=== PATIENT | female | born 1970 | race Caucasian/White ===

== ENCOUNTER 2017-06-13 02:38 | Inpatient (IN) ==
[2017-06-12 13:27] LABS: HEMATOCRIT 46.2 % (37.0-47.0); HEMOGLOBIN 15.5 g/dL (12.0-16.0); MCH 31.4 PG (27-31); MCHC 33.5 g/dL (33-37); MCV 93.7 FL (81-99); MPV 10.7 FL (7.4-10.4); RBC 4.93 XMIL (4.2-5.4)
[2017-06-12 13:44] LABS: AGAP 12; BUN 7 mg/dL (8-22); CALCIUM 9.9 mg/dL (8.8-10.2); CHLORIDE 99 mmol/L (98-107); COSMO 281; POTASSIUM 4.4 mmol/L (3.5-5.1); SODIUM 139 mmol/L (136-145); TCO2 28 mmol/L (25-35)
--- NOTE | 2017-06-13 05:11 | EKG Report ---
Test Performed on : 06/12/2017 1:07:57 PM Test Reason : pat Blood Pressure : / mmHG Vent. Rate : 069 BPM Atrial Rate : 069 BPM P-R Int : 170 ms QRS Dur : 088 ms QT Int : 418 ms P-R-T Axes : 018 014 101 degrees QTc Int : 447 ms Normal sinus rhythm. ST \T\ T wave abnormality, consider anterolateral ischemia Abnormal ECG When compared with ECG of 27-DEC-2015 13:57, premature ventricular complexes. are no longer present QT has shortened Confirmed by Telma Quigley MD ([id number]) on 06/18/2017 6:00:04 AM
[2017-06-13] MEDS ORDERED: REGLAN ONE (05:36)
[2017-06-13] MEDS ORDERED: KEFZOL 2 GM/D5W 2 GM/50 ML IVPB ONE (05:36)
[2017-06-13] MEDS ORDERED: LR 1,000 ML ONE (05:36)
[2017-06-13] MEDS ORDERED: PEPCID ONE (05:36)
[2017-06-13] MEDS ORDERED: NITROGLYCERIN 50 MG/D5W 50 MG/250 ML IV.SOLN ONE (06:12)
[2017-06-13] MEDS ORDERED: NS 1,000 ML ONE ×2 (06:20→11:36)
[2017-06-13] MEDS ORDERED: KEFZOL ONE (06:20)
[2017-06-13] MEDS ORDERED: HEPARIN ONE (06:20)
[2017-06-13] MEDS ORDERED: NEO-SYNEPHRINE ONE (06:25)
[2017-06-13] MEDS ORDERED: VERSED ONE (06:27)
[2017-06-13] MEDS ORDERED: DIPRIVAN 1% ONE (06:29)
[2017-06-13] MEDS ORDERED: FENTANYL ONE ×2 (06:30→08:39)
[2017-06-13] MEDS ORDERED: SODIUM CHLORIDE 0.9% 10 ML ONE (06:32)
[2017-06-13] MEDS ORDERED: ATROPINE ONE (06:32)
[2017-06-13] MEDS ORDERED: NORCURON ONE (06:32)
[2017-06-13] MEDS ORDERED: XYLOCAINE-MPF 2% ONE (06:32)
[2017-06-13] MEDS ORDERED: ROBINUL ONE ×2 (06:32→10:03)
[2017-06-13] MEDS ORDERED: QUELICIN (DOSE) ONE (06:36)
[2017-06-13] MEDS ORDERED: HEPARIN (DOSE) ONE (06:37)
[2017-06-13] MEDS ORDERED: EPHEDRINE ONE (07:27)
[2017-06-13] MEDS ORDERED: LOPRESSOR ONE (08:17)
[2017-06-13 08:38] LABS: URINE SOURCE CATH
[2017-06-13 08:41] LABS: BILIRUBIN URINE NEGATIVE (NEGATIVE); BLOOD URINE NEGATIVE (NEGATIVE); CLARITY CLEAR (CLEAR); COLOR YELLOW; GLUCOSE URINE NEGATIVE (NEGATIVE); LEUKOCYTES URINE NEGATIVE (NEGATIVE); NITRITE URINE NEGATIVE (NEGATIVE); PH URINE 5.5; PROTEIN URINE NEGATIVE (NEGATIVE); SP GRAVITY URINE >= 1.030; UROBILINOGEN URINE 0.2 EU/dL (0.2-1.0)
[2017-06-13 09:06] LABS: URINE RBC <10 /HPF (<10); URINE WBC <10 /HPF (<10)
[2017-06-13 09:07] LABS: URINE CAST NONE SEEN /LPF; URINE CRYSTAL NONE SEEN /HPF; URINE EPITHELIAL CELLS <10 /HPF (<10)
[2017-06-13] MEDS ORDERED: LABETALOL ONE (09:31)
[2017-06-13] MEDS ORDERED: OFIRMEV 1000 MG/ISOTONIC SOLN 1,000 MG/100 ML BOTTLE ONE (09:38)
[2017-06-13] MEDS ORDERED: NEOSTIGMINE ONE (10:03)
[2017-06-13] MEDS ORDERED: ZOFRAN ONE (10:40)
[2017-06-13] MEDS ORDERED: DUONEB (A & A) ONE (11:33)
[2017-06-13] MEDS: DILAUDID ONE ×3 (11:52→13:02)
[2017-06-13] MEDS: ZOFRAN ONE ×2 (12:14→13:02)
[2017-06-13] MEDS: DILAUDID IV PRN ×3 (13:07→21:46)
[2017-06-13] MEDS: NS 1,000 ML IV SCH ×2 (13:19→21:46)
[2017-06-13 13:43] LABS: ALLEN TEST YES; BLOOD TYPE ARTERIAL; DRAW SITE L RADIAL; METHB 1.1 % (0.0-1.5); O2(CT) 15.7 mL/dL (15.0-23.0); PCO2(98.6) 49 mmHg (35-45); PO2(98.6) 72 mmHg (60-100); SAMPLE BLOOD; SAO2 95.8 % (95.0-100.0); THB 12.1 g/dL (11.5-17.4); pH(98.6) 7.28 (7.35-7.45)
[2017-06-13 13:46] LABS: MODALITY CANNULA
[2017-06-13] MEDS: DUONEB (A & A) INH SCH ×4 (14:31→22:47)
[2017-06-13] MEDS: KEFZOL 1 GM/D5W 1 GM/50 ML IVPB IV SCH ×3 (14:31→22:01)
--- NOTE | 2017-06-13 14:37 | OPERATIVE NOTE ---
PROCEDURE DATE: 06/13/2017 PROCEDURES: 1. Aortobifemoral bypass. 2. Left femoral popliteal above knee bypass using an 8 mm Distaflo graft. SURGEON: Austen Srivastava MD. GROUP FITNESS MANAGER: Paul Calvo MD who assisted in exposure, anastomosis and wound closure. PREOPERATIVE DIAGNOSES: 1. Bilateral iliac occlusion. 2. Bilateral superficial femoral artery occlusion. 3. Intermittent claudication, worse on the left. POSTOPERATIVE DIAGNOSES: 1. Bilateral iliac occlusion. 2. Bilateral superficial femoral artery occlusion. 3. Intermittent claudication, worse on the left. DESCRIPTION OF PROCEDURE: After satisfactory general endotracheal anesthesia achieved, the abdomen and left leg were prepped and draped in a sterile fashion. We used an [place] drape. Prophylactic Kefzol was given. We made a vertical incision in the left groin, dissected down the common femoral artery, surrounded with an umbilical tape at the inguinal ligament and the branch vessels were surrounded with vessel loops. The small branches surrounded with 2 -0 silks. We did the same thing on the right groin. We then placed antibiotic sponges in both groins. We then made a midline abdominal incision and entered the abdominal cavity. We reflected the small bowel to the right and entered the retroperitoneum and exposed the aorta. We then placed the bowel within a bowel bag and reflected it to the right. We used a Bookwalter retractor and positioned it with our retractors to expose the retroperitoneum satisfactorily. The CHACE was identified. The left renal vein was identified. We made the tunnels in the retroperitoneum along the course of the vessels to both groins, passed umbilical tapes to use as tunnels for the bifurcated graft. We then gave the patient 8000 units of heparin. We chose a 14 x 7 mm Dacron bifurcated graft. I decided to use an end-to-side technique on the aorta to preserve flow to the inferior mesenteric artery and both internal iliac arteries. After we exposed the aorta satisfactorily, I placed a side-biting clamp at the aorta, below the renal vein and occluded it. We then used the angled aortic clamp and clamped it off distally. We then incised the aorta on its anterior aspect just above the inferior mesenteric artery takeoff. The 14 mm graft was then cut in the oblique fashion to match the aortotomy. We then used a 3-0 Prolene stitch beginning at the heel and went around the toe and completed the aortic graft anastomosis. We checked the anastomosis. A couple of extra stitches were placed. We then passed the limbs to the tunnels to the groins on both sides. We placed the appropriate amount of stretch on the limbs and then we turned our attention to the right groin. I took down the Bookwalter retractor and passed and then attended to the right groin first. We clamped off the common femoral to the inguinal ligament, and occluded flow in the branch vessels with the vessel loops and then did an anterior arteriotomy with 11 blade and extended with the Goel scissors. We cut the graft to match the arteriotomy, then used a 5-0 Prolene stitch beginning at the heel and going around the toe to do this anastomosis. Just prior to finishing it, we did pass a 3, 3.5 and 4 dilator down the profunda. We got good back bleeding. We back bled it and fore bled the common femoral, and then flushed the right limb of the graft after clamping off the left limb in the abdominal cavity. After flushing it, we then finished the anastomosis. We unclamped the aorta and flow was established down the right limb. A couple of additional stitches were used to achieve complete hemostasis of the right femoral anastomosis. Gel-Foam was used. We used the antibiotic sponge. I then turned our attention to the left groin. We did exactly the same procedure on the left side and we did use some dilators in the profunda and got good aggressive back bleeding in the profunda and then completed this anastomosis too using a 5-0 Prolene stitch. Prior to completing it, we back bled the profunda, fore bled the common femoral, flushed the graft and then finished the anastomosis and flow was established. All the clamps were removed from the abdominal cavity when this limb was opened. Again, an antibiotic sponge is placed in the left groin. We then proceeded to close the right groin with 2 layers of 2-0 Polysorb. We turned our attention to the abdominal cavity. Closed the retroperitoneum with a 2-0 chromic. We took care to cover the graft. We took care to avoid any exposure of the graft to the bowel. We took the bowel out of the bag, placed into the abdominal cavity and proceeded to close the anterior peritoneum with a 2-0 chromic and then the #2 Prolene in the fascia. We turned our attention once again to the left leg and did a distal medial incision in the thigh and exposed the popliteal and distal superficial femoral, popliteal artery, surrounded the vessel loops. We obtained an 8 x 80 Distaflo ring to graft and used a Dossick tunneler to tunnel the graft into the deep portion of the thigh. We positioned the jones of the Distaflo graft right at the distal artery and then cut the proximal end to match the appropriate length to the left limb of the aortobifemoral graft. We then removed the rings. We clamped off the left femoral artery and clamped with a Satinsky clamp. We made a vertical incision in the graft and then cut the PTFE graft to match the graftotomy. We then used a CV-5 [place] suture to construct this anastomosis between the PTFE graft and the Dacron graft. We tested the anastomosis and it was hemostatic. We did place some Gel-Foam around it. We clamped off the PTFE graft and then turned our attention distally. Medial arteriotomy to match the length of the jones on the Distaflo graft. We then used a CV-6 [place] suture here beginning at the heel and going around the toe. The popliteal artery admitted a 4 dilator easily and there was satisfactory back bleeding. After we neared completion of the anastomosis, we again flushed the PTFE graft from above and had good vigorous flow. We then finished the anastomosis and flow was established. No additional stitch was required of the distal anastomosis. We irrigated both the left groin and the left distal medial thigh wound with antibiotic solution. We then proceeded to close the left groin with 2 layers of 2-0 Polysorb. Two layers of 2-0 Polysorb were used to close the subcutaneous tissue of the distal medial thigh wound. We then closed every incision of the abdominal wound, both groins and the left medial thigh wound with roselyn. Sterile dressings were applied. She tolerated it well. Estimated blood loss was 800 mL. She was sent to the recovery room in satisfactory condition. cc: Austen Srivastava MD [facility]
[2017-06-13] MEDS ORDERED: KEFZOL 1 GM in NS 50 ML IV SCH (15:00)
[2017-06-13] MEDS: LOPRESSOR PO SCH (21:46)
[2017-06-13] MEDS: PERIDEX MT SCH (22:01)
[2017-06-14] MEDS: DILAUDID IV PRN ×6 (00:39→23:32)
[2017-06-14] MEDS: DUONEB (A & A) INH SCH ×6 (03:16→23:05)
[2017-06-14] MEDS: NS 1,000 ML IV SCH ×3 (04:39→18:02)
[2017-06-14] MEDS: ZOFRAN IV PRN (04:52)
[2017-06-14 05:28] LABS: MANUAL DIFF NEEDED? NO
[2017-06-14 05:45] LABS: BASO% 0.1 % (0.0-0.8); EOS# 0.02 X1000 (0.0-0.7); EOS% 0.2 % (0.0-10.0); HEMATOCRIT 32.7 % (37.0-47.0); HEMOGLOBIN 10.7 g/dL (12.0-16.0); IMM GRAN# 0.02 X1000 (0.0-0.04); IMM GRAN% 0.2 % (0.0-0.5); LYMPH# 1.82 X1000 (1.2-3.4); LYMPH% 14.7 % (20.5-51.1); MCH 30.8 PG (27-31); MCHC 32.7 g/dL (33-37); MCV 94.2 FL (81-99); MONO% 4.8 % (1.7-9.3); MPV 10.8 FL (7.4-10.4); PLT 155 X1000 (130-400); RBC 3.47 XMIL (4.2-5.4)
[2017-06-14 05:57] LABS: AGAP 13; BUN 8 mg/dL (8-22); CALCIUM 7.5 mg/dL (8.8-10.2); CHLORIDE 107 mmol/L (98-107); COSMO 289; POTASSIUM 4.1 mmol/L (3.5-5.1); SODIUM 141 mmol/L (136-145); TCO2 21 mmol/L (25-35)
--- NOTE | 2017-06-14 06:13 | Diag Imaging Result Doc PS360 ---
EXAM: CHEST-PORTABLE HISTORY: post op TECHNIQUE: COMPARISON: 12/27/2015 FINDINGS: Poor inspiratory effort. Sternal wires are present. Heart is not enlarged. There is basilar atelectasis versus tiny infiltrates. No pleural effusions identified. There is at least moderate scoliosis. IMPRESSION: Poor inspiratory effort with basilar atelectasis versus tiny infiltrates. Follow-up PA and lateral recommended. Electronically signed by Terell Guerrero 06/14/2017 6:11 AM
[2017-06-14] MEDS: PERIDEX MT SCH ×2 (09:30→20:06)
[2017-06-14] MEDS: LOPRESSOR PO SCH ×2 (09:30→20:07)
[2017-06-15] MEDS: DUONEB (A & A) INH SCH ×6 (03:11→23:22)
[2017-06-15] MEDS: NS 1,000 ML IV SCH ×2 (04:56→14:23)
[2017-06-15 05:17] LABS: BASO% 0.2 % (0.0-0.8); EOS# 0.05 X1000 (0.0-0.7); EOS% 0.5 % (0.0-10.0); HEMATOCRIT 25.8 % (37.0-47.0); HEMOGLOBIN 8.1 g/dL (12.0-16.0); IMM GRAN# 0.03 X1000 (0.0-0.04); IMM GRAN% 0.3 % (0.0-0.5); LYMPH% 9.2 % (20.5-51.1); MANUAL DIFF NEEDED? NO; MCH 30.7 PG (27-31); MCHC 31.4 g/dL (33-37); MCV 97.7 FL (81-99); MONO# 0.69 X1000 (0.11-0.59); MONO% 6.4 % (1.7-9.3); MPV 9.7 FL (7.4-10.4); NEUT% 83.4 % (42.2-75.2); PLT 116 X1000 (130-400); RBC 2.64 XMIL (4.2-5.4)
[2017-06-15 05:29] LABS: AGAP 10; BUN 7 mg/dL (8-22); CALCIUM 8.3 mg/dL (8.8-10.2); CHLORIDE 109 mmol/L (98-107); COSMO 293; POTASSIUM 4.1 mmol/L (3.5-5.1); SODIUM 144 mmol/L (136-145); TCO2 25 mmol/L (25-35)
[2017-06-15] MEDS: DILAUDID IV PRN ×4 (05:34→20:24)
--- NOTE | 2017-06-15 08:31 | Diag Imaging Result Doc PS360 ---
EXAM: CHEST-PORTABLE INDICATION: post op TECHNIQUE: One view COMPARISON: 06/14/2017 FINDINGS: Inspiration is suboptimal. Subsegmental atelectasis and/or infiltrate at the lung bases is similar to the previous study. No new consolidations are appreciated. Cardiac silhouette is stable. IMPRESSION: Essentially stable chest. Electronically signed by Kana Perez 06/15/2017 8:29 AM
[2017-06-15] MEDS: PERIDEX MT SCH ×2 (08:42→20:05)
[2017-06-15] MEDS: LOPRESSOR PO SCH ×2 (08:42→20:05)
--- NOTE | 2017-06-15 12:40 | PROGRESS NOTE ---
DATE: 06/15/2017 SUBJECTIVE: The patient feels sore. She denies nausea or vomiting. She has not passed any gas yet. OBJECTIVE: Vital Signs: She is afebrile. Vital signs are stable. O2 saturation 99%. General: She is awake and alert. No acute distress. Cardiovascular: Regular rate and rhythm. Respiratory: No work of breathing. She is on an oxygen face mask with 50% Venturi mask. Urine output 1550 mL yesterday. Gastrointestinal: Abdomen soft, mildly tender. Nondistended. Her bowel sounds are hypoactive. LABORATORY: White blood cell count 70889, hemoglobin 8, hematocrit 25. Basic metabolic profile reviewed and unremarkable. ASSESSMENT/PLAN: A 46-year-old female postop day 2, aortobifemoral bypass and femoral popliteal bypass. She is doing reasonably well. We are trying to wean her off of the Venturi mask. She is a smoker and has some respiratory insufficiency. Her bowel function is sluggish. At this point, we will start her on sips of clears today and encourage being out of bed and working on pulmonary toilet. cc: MD Austen Eli MD
[2017-06-15] MEDS ORDERED: BLISTEX MEDICATED BERRY LIP BALM TOP ONE (14:03)
[2017-06-15] MEDS: ZOFRAN IV PRN (23:50)
[2017-06-16] MEDS: DUONEB (A & A) INH SCH ×6 (03:23→23:13)
[2017-06-16] MEDS: NS 1,000 ML IV SCH ×2 (04:48→10:34)
[2017-06-16] MEDS: PERIDEX MT SCH ×2 (08:06→20:02)
[2017-06-16] MEDS: LOPRESSOR PO SCH ×2 (08:06→20:02)
--- NOTE | 2017-06-16 10:20 | PROGRESS NOTE ---
DATE: 06/16/2017 SUBJECTIVE: She noted some numbness in her left lower leg and foot overnight. No significant pain there. She is able to move it well. She has no other complaints of weakness in her upper extremity or face. She has not passed any gas yet. She denies nausea or vomiting. She does have some abdominal pain. OBJECTIVE: Vital Signs: She is afebrile. Vital signs are stable. However, she does occasionally drop her oxygen saturations. However, on a 100% nonrebreather, they are maintained above 90% for the most part. Otherwise, her vital signs are stable. She is making good urine output of about 2 L yesterday. General: She is awake and alert. No acute distress. Respiratory: Bilateral equal breath sounds but really fairly poor inspiration. CV: Regular rate and rhythm. GI: Soft, appropriately tender. She does have a few bowel sounds. Her incision is clean, dry, and intact. Extremities: She moves all extremities equally and well. She has a strong palpable pulse in her foot on the left and ankle. There is no discoloration in the foot or toes. Her foot is warm. She has sensation to touch, although it seems different on the left. ASSESSMENT AND PLAN: A 46-year-old female, status post aortobifemoral bypass and femoropopliteal bypass above the knee. Her main problem postoperatively is hypoxia and respiratory insufficiency. We will check another chest x-ray this morning, work on incentive spirometry, and ask the data clerk to see her and assist. With regards to the left lower extremity numbness, we are going to get a CT scan of the head as a precaution. cc: MD Austen Eli MD
--- NOTE | 2017-06-16 11:15 | Diag Imaging Result Doc PS360 ---
EXAM: CHEST-PORTABLE INDICATION: hypoxia TECHNIQUE: One view COMPARISON: 06/15/2017 FINDINGS: Lung volumes are low similar to the previous study. Subsegmental atelectasis and/or infiltrate at the lung bases appears to have worsened somewhat. This is probably due to worsening pulmonary edema. There is suggestion of small bilateral effusions that have probably increased in size during the interval. Cardiac silhouette is stable. Pulmonary venous congestion is noted. IMPRESSION: Worsening infiltrates bilaterally likely representing worsening edema. Electronically signed by Kana Perez 06/16/2017 11:13 AM
[2017-06-16] MEDS: DILAUDID IV PRN ×2 (11:17→20:23)
--- NOTE | 2017-06-16 11:21 | Diag Imaging Result Doc PS360 ---
EXAM: HEAD W/O CONTRAST TECHNIQUE: Dose reduction protocol was used. INDICATION: new left leg numbness COMPARISON: 12/27/2015 FINDINGS: There are chronic lacunar infarcts involving the violeta on the right, the left caudate, left basal ganglion, and probably the right basal ganglion. These can be identified on the previous study. There is no definite acute infarct given the limited sensitivity of CT versus MRI. There is no discrete intracranial mass, mass effect, or intracranial hemorrhage. The surrounding soft tissues and bony structures are essentially unremarkable. IMPRESSION: Stable chronic changes as described but no definite acute pathology given the limitations of CT versus MRI. Electronically signed by Kana Perez 06/16/2017 11:18 AM
[2017-06-16] MEDS: LEVAQUIN 500 MG/D5W 500 MG/100 ML IVPB IV SCH (12:52)
[2017-06-16] MEDS: MAXIPIME 1 GM/NS 1 GM/50 ML IVPB IV SCH (12:59)
[2017-06-16] MEDS ORDERED: LASIX IV ONE (13:00)
--- NOTE | 2017-06-16 15:56 | CONSULTATION ---
DATE OF CONSULTATION: 06/16/2017 REASON FOR STUDY: Dr. Austen Srivastava Thank you very much for asking me to see this very unfortunate 46-year-old female, white. IMPRESSION: 1. Status postop day #4 for aortofemoral bypass surgery secondary to vascular occlusion. 2. Chronic obstructive pulmonary disease. 3. Postoperative respiratory failure. 4. History of hypertension. RECOMMENDATIONS: I will gently diurese her. Give her broad-spectrum antibiotics with meropenem and Levaquin, inhaled beta agonists, sequential compression boots for DVT prophylaxis, and wean her oxygen. Follow closely along with you. HISTORY: The history is somewhat incomplete on this 46-year-old female, white. She has a known history of coronary artery disease and underwent bypass surgery on the . She was returned to the ICU where she has developed some shortness of breath, cough and some hypoxemia, and subsequently I am consulted to assist in her care. She is a smoker of approximately 60 pack-year history. Continued to smoke up until her admission. REVIEW OF SYSTEMS: Except for the features mentioned above are negative for weight loss, night sweats, weakness or anorexia. No ENT symptoms of odynophagia, dysphagia, epistaxis or painful swallowing. No eye symptoms of blindness, blurring or diplopia. No other cardiac or pulmonary symptoms other than mentioned. No nausea, vomiting, constipation, diarrhea. No hematuria, polyuria, nocturia, dysuria. No joint or muscle pain, stiffness, swelling. No skin rash, itching, bruises. No seizures, loss of consciousness or paralysis. Except for the features mentioned above, all other symptoms on the review of system are negative. FAMILY HISTORY: Noncontributory. PAST MEDICAL HISTORY: Positive for hypertension, vascular disease, status post bypass surgery and COPD. SOCIALLY: She is a medically disabled smoker. PHYSICAL EXAMINATION: Vital signs: Blood pressure of 125/73, pulse 93, respirations 24, temperature 97.3 degrees. HEENT: Reveals no thyromegaly or adenopathy. Pupils are equal and reactive. Extraocular muscles are intact. Neck: Supple. No bruits. No thyromegaly. No JVD. Chest: Reveals bilateral equal breath sounds with some prolongation expiratory phase. Forced expiratory wheezes. Cardiac: Reveals a regular rhythm without an appreciable murmur. Abdomen: Soft postoperative, nontender. There is a midline incision. Skin: Warm and dry. Neurological: Grossly nonfocal. Awake and moves all 4. LABORATORY/IMAGING: Sodium 144, potassium 4.1, chloride 109, CO2 25, BUN 7. Creatinine 0.6, glucose 215. White count 10,800, hemoglobin 8.1, hematocrit 25.8, platelets 116,000. Chest radiograph shows modest cardiomegaly. Right-sided pleural effusion. Median sternotomy. cc: Austen Srivastava MD
[2017-06-17] MEDS: DILAUDID IV PRN ×4 (01:30→22:26)
[2017-06-17] MEDS: NS 1,000 ML IV SCH ×2 (01:31→08:47)
[2017-06-17] MEDS: MAXIPIME 1 GM/NS 1 GM/50 ML IVPB IV SCH ×2 (01:32→14:47)
[2017-06-17] MEDS: DUONEB (A & A) INH SCH ×6 (03:22→23:30)
[2017-06-17 04:43] LABS: ALLEN TEST YES; BE 4.3 mmoll (-3.0-3.0); BLOOD TYPE ARTERIAL; DRAW SITE R RADIAL; METHB 0.8 % (0.0-1.5); O2(CT) 9.5 mL/dL (15.0-23.0); PCO2(98.6) 45 mmHg (35-45); PO2(98.6) 54 mmHg (60-100); SAMPLE BLOOD; SAO2 92.3 % (95.0-100.0); THB 7.5 g/dL (11.5-17.4); pH(98.6) 7.42 (7.35-7.45)
[2017-06-17 04:45] LABS: MODALITY NRB
[2017-06-17 05:02] LABS: AGAP 14; BASO% 0.2 % (0.0-0.8); BUN 8 mg/dL (8-22); CALCIUM 8.4 mg/dL (8.8-10.2); CHLORIDE 102 mmol/L (98-107); COSMO 285; EOS# 0.05 X1000 (0.0-0.7); EOS% 0.9 % (0.0-10.0); HEMATOCRIT 23.1 % (37.0-47.0); HEMOGLOBIN 7.3 g/dL (12.0-16.0); LYMPH# 0.82 X1000 (1.2-3.4); MANUAL DIFF NEEDED? YES; MCH 31.5 PG (27-31); MCHC 31.6 g/dL (33-37); MCV 99.6 FL (81-99); MONO# 0.49 X1000 (0.11-0.59); MONO% 8.4 % (1.7-9.3); MPV 10.5 FL (7.4-10.4); NEUT% 76.5 % (42.2-75.2); PLT 129 X1000 (130-400); POTASSIUM 3.5 mmol/L (3.5-5.1); RBC 2.32 XMIL (4.2-5.4); SODIUM 141 mmol/L (136-145); TCO2 25 mmol/L (25-35)
[2017-06-17 05:49] LABS: BANDS 10 % (0-1); HYPOCHROM 1+; LYMPHS 20 % (21-51)
--- NOTE | 2017-06-17 05:53 | Diag Imaging Result Doc PS360 ---
EXAM: CHEST-1 VIEW HISTORY: copd TECHNIQUE: Portable COMPARISON: 06/16/2017 FINDINGS: There are bilateral infiltrates and atelectasis. Sternal wires are present. Heart is mildly enlarged. Liver small pleural effusions. Patient has at least moderate scoliosis. IMPRESSION: No interval improvement. Infiltrates may be slightly worse. Electronically signed by Terell Guerrero 06/17/2017 5:51 AM
[2017-06-17] MEDS ORDERED: LASIX IV ONE ×2 (06:14→08:11)
[2017-06-17] MEDS: LOPRESSOR PO SCH ×2 (08:47→20:09)
[2017-06-17] MEDS: PERIDEX MT SCH ×2 (08:47→20:35)
[2017-06-17] MEDS: LEVAQUIN 500 MG/D5W 500 MG/100 ML IVPB IV SCH (12:41)
[2017-06-17] MEDS: ZOFRAN IV PRN (19:32)
[2017-06-18] MEDS: MAXIPIME 1 GM/NS 1 GM/50 ML IVPB IV SCH ×2 (02:00→13:18)
[2017-06-18] MEDS: DILAUDID IV PRN ×6 (03:15→23:07)
[2017-06-18 04:34] LABS: ALLEN TEST YES; BE 9.2 mmoll (-3.0-3.0); BLOOD TYPE ARTERIAL; DRAW SITE R RADIAL; PCO2(98.6) 50 mmHg (35-45); PO2(98.6) 72 mmHg (60-100); SAMPLE BLOOD; THB < 3.0 g/dL (11.5-17.4); pH(98.6) 7.45 (7.35-7.45)
[2017-06-18 04:35] LABS: MODALITY BI PAP
[2017-06-18 04:43] LABS: MANUAL DIFF NEEDED? NO
[2017-06-18 05:12] LABS: AGAP 12; BUN 9 mg/dL (8-22); CALCIUM 8.6 mg/dL (8.8-10.2); CHLORIDE 96 mmol/L (98-107); COSMO 277; SODIUM 138 mmol/L (136-145); TCO2 30 mmol/L (25-35)
[2017-06-18 05:14] LABS: BASO% 0.1 % (0.0-0.8); EOS# 0.07 X1000 (0.0-0.7); HEMATOCRIT 22.9 % (37.0-47.0); HEMOGLOBIN 7.3 g/dL (12.0-16.0); IMM GRAN# 0.05 X1000 (0.0-0.04); IMM GRAN% 0.7 % (0.0-0.5); LYMPH# 1.21 X1000 (1.2-3.4); LYMPH% 17.6 % (20.5-51.1); MCH 30.5 PG (27-31); MCHC 31.9 g/dL (33-37); MCV 95.8 FL (81-99); MONO# 0.53 X1000 (0.11-0.59); MONO% 7.7 % (1.7-9.3); MPV 10.8 FL (7.4-10.4); NEUT% 72.9 % (42.2-75.2); PLT 157 X1000 (130-400); RBC 2.39 XMIL (4.2-5.4)
[2017-06-18] MEDS ORDERED: LASIX IV ONE ×2 (06:45→16:00)
[2017-06-18] MEDS: POTASSIUM CHLORIDE 20 MEQ/SWI 20 MEQ/100 ML IVPB IV SCH ×4 (07:03→17:37)
--- NOTE | 2017-06-18 07:36 | Diag Imaging Result Doc PS360 ---
CHEST-PORTABLE - 06/18/2017 INDICATION: post op TECHNIQUE: COMPARISON: 06/17/2017 FINDINGS: Stable cardiomegaly and hazy interstitial infiltrates diffusely and bilaterally compatible with pulmonary edema. Stable small to moderate pleural effusions. IMPRESSION: No change from prior. Electronically signed by Renaldo Rivas 06/18/2017 7:34 AM
[2017-06-18] MEDS: DUONEB (A & A) INH SCH ×6 (07:49→23:41)
[2017-06-18] MEDS: PERIDEX MT SCH ×2 (08:01→20:06)
[2017-06-18] MEDS: NS 1,000 ML IV SCH (08:01)
[2017-06-18] MEDS: LOPRESSOR PO SCH ×2 (08:01→20:06)
[2017-06-18] MEDS: LEVAQUIN 500 MG/D5W 500 MG/100 ML IVPB IV SCH (12:23)
[2017-06-19] MEDS: MAXIPIME 1 GM/NS 1 GM/50 ML IVPB IV SCH ×2 (01:51→13:19)
[2017-06-19] MEDS: DUONEB (A & A) INH SCH ×6 (03:15→22:47)
[2017-06-19] MEDS: DILAUDID IV PRN ×3 (03:34→20:13)
[2017-06-19 04:23] LABS: ALLEN TEST YES; BE 12.7 mmoll (-3.0-3.0); BLOOD TYPE ARTERIAL; DRAW SITE R RADIAL; METHB 0.8 % (0.0-1.5); O2(CT) 11.5 mL/dL (15.0-23.0); PO2(98.6) 128 mmHg (60-100); SAMPLE BLOOD; SAO2 98.9 % (95.0-100.0); THB 8.3 g/dL (11.5-17.4); pH(98.6) 7.47 (7.35-7.45)
[2017-06-19 04:24] LABS: MODALITY NRB; PCO2(98.6) 52 mmHg (35-45)
[2017-06-19 05:33] LABS: MANUAL DIFF NEEDED? NO
[2017-06-19 05:49] LABS: BASO% 0.3 % (0.0-0.8); EOS# 0.07 X1000 (0.0-0.7); EOS% 1.1 % (0.0-10.0); HEMOGLOBIN 7.2 g/dL (12.0-16.0); IMM GRAN# 0.03 X1000 (0.0-0.04); IMM GRAN% 0.5 % (0.0-0.5); LYMPH# 1.17 X1000 (1.2-3.4); LYMPH% 17.7 % (20.5-51.1); MCH 29.8 PG (27-31); MCHC 31.3 g/dL (33-37); MONO# 0.54 X1000 (0.11-0.59); MONO% 8.2 % (1.7-9.3); MPV 10.9 FL (7.4-10.4); NEUT% 72.2 % (42.2-75.2); PLT 174 X1000 (130-400); RBC 2.42 XMIL (4.2-5.4)
[2017-06-19 06:13] LABS: AGAP 10; BUN 7 mg/dL (8-22); CALCIUM 8.9 mg/dL (8.8-10.2); CHLORIDE 94 mmol/L (98-107); COSMO 277; POTASSIUM 3.1 mmol/L (3.5-5.1); SODIUM 137 mmol/L (136-145); TCO2 33 mmol/L (25-35)
--- NOTE | 2017-06-19 07:18 | Diag Imaging Result Doc PS360 ---
EXAM: CHEST-PORTABLE HISTORY: post op resp failure TECHNIQUE: Portable COMPARISON: 06/18/2017 FINDINGS: Sternal wires are present. Heart remains mildly prominent. There are small bilateral pleural effusions. Mild increased interstitial markings persist although they are less pronounced than on the prior exam. There is prominent scoliosis. IMPRESSION: Interval improvement. Electronically signed by Terell Guerrero 06/19/2017 7:16 AM
[2017-06-19] MEDS ORDERED: POTASSIUM CHLORIDE 20% LIQUID PO ONE (07:20)
[2017-06-19] MEDS: PERIDEX MT SCH ×2 (09:22→20:05)
[2017-06-19] MEDS: LOPRESSOR PO SCH ×2 (09:22→20:05)
[2017-06-19] MEDS: LEVAQUIN 500 MG/D5W 500 MG/100 ML IVPB IV SCH (13:18)
[2017-06-19] MEDS: NS 1,000 ML IV SCH (14:50)
[2017-06-19] MEDS: PLAVIX PO SCH (18:59)
[2017-06-19] MEDS: AMARYL PO SCH (18:59)
[2017-06-19] MEDS: ASPIRIN PO SCH (20:05)
[2017-06-19] MEDS: LIPITOR PO SCH (20:05)
[2017-06-20] MEDS: MAXIPIME 1 GM/NS 1 GM/50 ML IVPB IV SCH ×2 (02:11→14:50)
[2017-06-20] MEDS: DUONEB (A & A) INH SCH ×6 (03:40→23:12)
[2017-06-20 06:28] LABS: MANUAL DIFF NEEDED? NO
[2017-06-20 06:54] LABS: BASO% 0.3 % (0.0-0.8); EOS# 0.06 X1000 (0.0-0.7); EOS% 0.8 % (0.0-10.0); HEMATOCRIT 23.8 % (37.0-47.0); HEMOGLOBIN 7.6 g/dL (12.0-16.0); IMM GRAN# 0.04 X1000 (0.0-0.04); IMM GRAN% 0.5 % (0.0-0.5); LYMPH# 1.08 X1000 (1.2-3.4); LYMPH% 14.7 % (20.5-51.1); MCH 30.5 PG (27-31); MCHC 31.9 g/dL (33-37); MCV 95.6 FL (81-99); MONO# 0.52 X1000 (0.11-0.59); MONO% 7.1 % (1.7-9.3); NEUT% 76.6 % (42.2-75.2); PLT 202 X1000 (130-400); RBC 2.49 XMIL (4.2-5.4)
[2017-06-20 07:07] LABS: AGAP 12; BUN 8 mg/dL (8-22); CALCIUM 9.1 mg/dL (8.8-10.2); CHLORIDE 94 mmol/L (98-107); COSMO 277; POTASSIUM 3.4 mmol/L (3.5-5.1); SODIUM 138 mmol/L (136-145); TCO2 32 mmol/L (25-35)
[2017-06-20] MEDS: PLAVIX PO SCH (08:38)
[2017-06-20] MEDS: AMARYL PO SCH (08:38)
[2017-06-20] MEDS: NS 1,000 ML IV SCH (08:39)
[2017-06-20] MEDS: PERIDEX MT SCH ×2 (08:39→21:07)
[2017-06-20] MEDS: LOPRESSOR PO SCH ×2 (08:39→21:07)
[2017-06-20] MEDS: DILAUDID IV PRN (09:07)
[2017-06-20] MEDS: ZOFRAN IV PRN (09:07)
[2017-06-20] MEDS ORDERED: DULCOLAX PR ONE (11:45)
[2017-06-20] MEDS: LEVAQUIN 500 MG/D5W 500 MG/100 ML IVPB IV SCH (12:09)
[2017-06-20] MEDS: NORCO-10 PO PRN ×2 (15:25→21:05)
[2017-06-20] MEDS: CHANTIX PO SCH (21:06)
[2017-06-20] MEDS: ASPIRIN PO SCH (21:06)
[2017-06-20] MEDS: LIPITOR PO SCH (21:07)
[2017-06-21] MEDS: MAXIPIME 1 GM/NS 1 GM/50 ML IVPB IV SCH ×2 (02:12→16:08)
[2017-06-21] MEDS: DUONEB (A & A) INH SCH ×6 (03:50→22:49)
[2017-06-21 06:03] LABS: MANUAL DIFF NEEDED? NO
[2017-06-21 06:09] LABS: BASO% 0.2 % (0.0-0.8); EOS% 1.2 % (0.0-10.0); HEMATOCRIT 25.8 % (37.0-47.0); IMM GRAN# 0.07 X1000 (0.0-0.04); IMM GRAN% 0.8 % (0.0-0.5); LYMPH# 1.41 X1000 (1.2-3.4); LYMPH% 16.6 % (20.5-51.1); MCH 29.9 PG (27-31); MCV 96.3 FL (81-99); MONO# 0.48 X1000 (0.11-0.59); MONO% 5.7 % (1.7-9.3); MPV 10.7 FL (7.4-10.4); NEUT% 75.5 % (42.2-75.2); PLT 251 X1000 (130-400); RBC 2.68 XMIL (4.2-5.4)
[2017-06-21 06:19] LABS: AGAP 10; BUN 6 mg/dL (8-22); CALCIUM 9.9 mg/dL (8.8-10.2); CHLORIDE 96 mmol/L (98-107); COSMO 279; POTASSIUM 3.1 mmol/L (3.5-5.1); SODIUM 139 mmol/L (136-145); TCO2 33 mmol/L (25-35)
[2017-06-21] MEDS: AMARYL PO SCH (08:45)
[2017-06-21] MEDS: NORCO-10 PO PRN ×3 (09:30→18:53)
[2017-06-21] MEDS: PLAVIX PO SCH (09:45)
[2017-06-21] MEDS: LOPRESSOR PO SCH ×2 (09:50→21:10)
[2017-06-21] MEDS: PERIDEX MT SCH ×2 (09:50→21:10)
[2017-06-21] MEDS: CHANTIX PO SCH ×2 (09:50→21:10)
[2017-06-21] MEDS: LEVAQUIN 500 MG/D5W 500 MG/100 ML IVPB IV SCH (12:10)
[2017-06-21] MEDS ORDERED: LASIX IV ONE (12:23)
[2017-06-21] MEDS: KLOR-CON PO SCH ×3 (14:20→17:52)
[2017-06-21] MEDS: NS 1,000 ML IV SCH (18:54)
[2017-06-21] MEDS: ASPIRIN PO SCH (21:10)
[2017-06-21] MEDS: LIPITOR PO SCH (21:10)
[2017-06-22] MEDS: MAXIPIME 1 GM/NS 1 GM/50 ML IVPB IV SCH ×2 (02:32→14:00)
[2017-06-22] MEDS: DUONEB (A & A) INH SCH ×6 (03:40→22:50)
[2017-06-22] MEDS ORDERED: PNEUMOVAX 23 IM ONE (03:45)
[2017-06-22 05:40] LABS: AGAP 11; ALBUMIN 2.6 g/dL (3.5-5.0); ALKALINE PHOSPHATASE 70 U/L (32-104); BUN 6 mg/dL (8-22); CHLORIDE 96 mmol/L (98-107); COSMO 280; GOT 10 U/L (10-30); GPT 10 U/L (10-36); MAGNESIUM 1.5 mg/dL (1.5-2.7); POTASSIUM 3.9 mmol/L (3.5-5.1); SODIUM 139 mmol/L (136-145); TCO2 32 mmol/L (25-35); TOTAL BILIRUBIN 0.67 mg/dL (0.20-1.00); TOTAL PROTEIN 6.1 g/dL (6.3-8.3)
[2017-06-22] MEDS: PLAVIX PO SCH (08:27)
[2017-06-22] MEDS: AMARYL PO SCH (08:28)
[2017-06-22] MEDS: LOPRESSOR PO SCH ×2 (08:28→21:07)
[2017-06-22] MEDS: CHANTIX PO SCH ×2 (08:28→21:08)
[2017-06-22] MEDS: PERIDEX MT SCH ×2 (08:30→21:07)
[2017-06-22] MEDS: NORCO-10 PO PRN ×2 (08:33→17:59)
--- NOTE | 2017-06-22 11:07 | Diag Imaging Result Doc PS360 ---
EXAM: CHEST-2 VIEWS - 06/22/2017 HISTORY: abnormal exam TECHNIQUE: Chest two views COMPARISON: 06/19/2017 FINDINGS: The PA view is rotated towards the left. Heart size is normal. There are sternal wires from previous surgery again seen. There is been interval decrease in basilar opacities. There is mild subsegmental atelectasis at the right base. There is no dense consolidation, gross vascular congestion, pleural effusion, or pneumothorax identified. IMPRESSION: Interval decrease in basilar opacities. Mild atelectasis at right base. No dense consolidation. Electronically signed by Ajit Rodriguez 06/22/2017 11:05 AM
[2017-06-22] MEDS: NS 1,000 ML IV SCH (12:09)
[2017-06-22] MEDS: LEVAQUIN 500 MG/D5W 500 MG/100 ML IVPB IV SCH (12:10)
[2017-06-22] MEDS: ASPIRIN PO SCH (21:08)
[2017-06-22] MEDS: LIPITOR PO SCH (21:08)
[2017-06-23] MEDS: MAXIPIME 1 GM/NS 1 GM/50 ML IVPB IV SCH (01:20)
[2017-06-23] MEDS: NORCO-10 PO PRN ×2 (02:26→10:12)
[2017-06-23] MEDS: DUONEB (A & A) INH SCH ×2 (04:02→08:09)
[2017-06-23 08:17] VITALS: BP 129/66
[2017-06-23] MEDS: PERIDEX MT SCH (08:45)
[2017-06-23] MEDS: PLAVIX PO SCH (08:46)
[2017-06-23] MEDS: LOPRESSOR PO SCH (08:46)
[2017-06-23] MEDS: AMARYL PO SCH (08:46)
[2017-06-23] MEDS: CHANTIX PO SCH (08:46)
--- NOTE | 2017-06-25 10:08 | DISCHARGE SUMMARY ---
ADMISSION DATE: 06/13/2017 DISCHARGE DATE: 06/23/2017 PRIMARY DISCHARGE DIAGNOSES: 1. Bilateral iliac artery occlusion with claudication. 2. History of cerebral vascular accident. 3. A history of alcohol abuse. 4. Coronary artery disease, post coronary bypass. 5. Gastroesophageal reflux. 6. Diabetes mellitus. 7. Tobacco dependence. PRIMARY PROCEDURE: An aortobifemoral bypass and a left femoral popliteal bypass. REASON FOR ADMISSION AND HOSPITAL COURSE: This is a 46-year-old with significant peripheral vascular disease. She was admitted on the , and underwent aortobifemoral bypass with a left femoral popliteal bypass. Postoperatively, she developed some respiratory failure and Dr. Means was consulted. She was placed on increased FiO2 and even BiPAP. She was diuresed and of course placed on bronchodilator therapy. We were able to start her on liquids on the 5th postoperative day. We are able to advance her diet subsequently, and transferred her out of the unit on the 6th postoperative day. After satisfactory diuresis, her oxygen requirements fail. We switched her from IV pain medicine to p.o. pain medicine on the 7th postoperative day. By 06/23/2017, her oxygen saturation was adequate on 4-5 L of nasal oxygen. She was ambulatory and it was felt she could be discharged home. Her wounds were fine. She did have a palpable foot pulse on the left leg and it was felt she could be discharged home. She will return to the office in a week for followup. She was set up to have nasal oxygen at home. She was given [place] 10 for pain. She will resume her usual home medicines including aspirin, Plavix, Lipitor, Lopressor, Centrum, Chantix, vitamin B12, and glimepiride. cc: Austen Srivastava MD
== END 2017-06-23 10:43 | disposition home or self-care (01) ==
LOC: SURHOLD 02:38 → ICU 12:44 → 4N 06-19 17:58
PROVIDERS: ADMIT Surgery; ATTEND Surgery

== ENCOUNTER 2019-04-17 09:03 | Day surgery (SDC) ==
[2019-04-15 15:35] LABS: HEMATOCRIT 45.2 % (37.0-47.0); HEMOGLOBIN 14.7 g/dL (12.0-16.0); MCH 29.3 PG (27-31); MCHC 32.5 g/dL (33-37); MCV 90.2 FL (81-99); MPV 10.4 FL (7.4-10.4); RBC 5.01 XMIL (4.2-5.4); RDW 14.2 % (11.5-14.5); WBC 8.87 X1000 (4.8-10.8)
[2019-04-15 15:57] LABS: AGAP 12; BUN 10 mg/dL (8-22); CALCIUM 9.8 mg/dL (8.8-10.2); CHLORIDE 101 mmol/L (98-107); COSMO 278; CREATININE 0.6 mg/dL (0.5-0.9); ESTIMATED GFR > 60; GLUCOSE 195 mg/dL (70-104); POTASSIUM 4.5 mmol/L (3.5-5.1); SODIUM 137 mmol/L (136-145); TCO2 24 mmol/L (25-35)
--- NOTE | 2019-04-15 15:57 | EKG Report ---
Test Performed on : 04/15/2019 2:53:30 PM Test Reason : PAT Blood Pressure : / mmHG Vent. Rate : 066 BPM Atrial Rate : 066 BPM P-R Int : 166 ms QRS Dur : 088 ms QT Int : 442 ms P-R-T Axes : 041 073 093 degrees QTc Int : 463 ms Normal sinus rhythm. Nonspecific ST and T wave abnormality Abnormal ECG When compared with ECG of 12-JUN-2017 13:07, Questionable change in QRS axis Confirmed by Darwin MELENDEZ, Rajesh Cuevas ([id number]) on 04/16/2019 6:38:43 PM
[~2019-04-17 09:03] MED LIST: DIPRIVAN 1% ONE; NORCURON ONE; QUELICIN (DOSE) ONE; SODIUM CHLORIDE 0.9% 10 ML ONE; XYLOCAINE-MPF 2% ONE
[2019-04-17] MEDS ORDERED: PEPCID ONE (09:37)
[2019-04-17] MEDS ORDERED: KEFZOL 1 GM/D5W 1 GM/50 ML IVPB ONE (09:37)
[2019-04-17] MEDS ORDERED: REGLAN ONE (09:37)
[2019-04-17] MEDS ORDERED: LR 1,000 ML ONE (09:37)
[2019-04-17] MEDS ORDERED: PAPAVERINE ONE (12:45)
[2019-04-17] MEDS ORDERED: NS 3,000 ML ONE (12:45)
[2019-04-17] MEDS ORDERED: HEPARIN ONE ×3 (12:46→12:49)
[2019-04-17] MEDS ORDERED: HEPARIN (DOSE) ONE (13:22)
[2019-04-17] MEDS ORDERED: FENTANYL ONE (13:34)
[2019-04-17] MEDS ORDERED: ROBINUL ONE ×2 (13:39→13:48)
[2019-04-17] MEDS ORDERED: KEFZOL ONE (13:47)
[2019-04-17] MEDS ORDERED: NS 1,000 ML ONE (14:17)
[2019-04-17] MEDS: DILAUDID ONE ×2 (14:28→14:31)
[2019-04-17 14:56] LABS: URINE SOURCE CATH
[2019-04-17 15:00] LABS: BILIRUBIN URINE NEGATIVE (NEGATIVE); BLOOD URINE NEGATIVE (NEGATIVE); COLOR YELLOW; GLUCOSE URINE 200 mg/dL (NEGATIVE); KETONE URINE NEGATIVE (NEGATIVE); LEUKOCYTES URINE NEGATIVE (NEGATIVE); NITRITE URINE NEGATIVE (NEGATIVE); PH URINE 6.5; PROTEIN URINE TRACE mg/dL (NEGATIVE); SP GRAVITY URINE 1.022; TURBIDITY URINE CLEAR (CLEAR); UROBILINOGEN URINE 2 mg/dL (NORMAL)
[2019-04-17 15:01] LABS: UR EPITHELIAL CELLS <10 /HPF (<10); URINE BACTERIA NEGATIVE /HPF; URINE RBC <10 /HPF (<10); URINE WBC <10 /HPF (<10)
[2019-04-17] MEDS ORDERED: ZOFRAN IV PRN (15:48)
[2019-04-17] MEDS ORDERED: DILAUDID IV PRN (15:48)
[2019-04-17] MEDS: NORCO-10 PO PRN ×2 (18:37→21:39)
[2019-04-17] MEDS: NS 1,000 ML IV SCH (18:38)
--- NOTE | 2019-04-17 20:09 | OPERATIVE NOTE ---
PROCEDURE DATE: 04/17/2019 PROCEDURE PERFORMED: 1. Open thrombectomy left limb aortobifemoral bypass. 2. Open thrombectomy left femoral-popliteal bypass. SURGEON: Austen Srivastava MD. SENIOR ENGINEERING SPECIALIST: ISAÍAS Del Angel. PREOPERATIVE DIAGNOSIS: 1. Thrombosis left limb aortobifemoral graft. 2. Thrombosis left femoral popliteal bypass. POSTOPERATIVE DIAGNOSIS: 1. Thrombosis left limb aortobifemoral graft. 2. Thrombosis left femoral popliteal bypass. DESCRIPTION OF PROCEDURE: The abdomen, right groin, left groin, left leg were prepped and draped in sterile fashion. The foot was excluded. Prophylactic Kefzol was given. We made a vertical incision in the left groin dissected down to the grafts. We identified the left limb of the aortobifemoral. We identified the femoral-popliteal graft as well. After dissecting on both sides of it such that we could clamp the graft we gave the patient 9000 units of heparin systemically. After it circulated for more than 3 minutes we then made a transverse graftotomy. We passed a 4 [place] distally and fortunately it went off easily through the distal anastomosis all the way to the ankle. We retrieved thrombus and clot out of the distal graft until we got good back bleeding so this took multiple passes and we did this until we got good arterial backbleeding and got no further thrombus from the distal femoral-popliteal graft. We then clamped it off. We then passed a 5 Wilder proximally and fortunately it went through the proximal anastomosis as well into the [place] aorta and we evacuated the thrombus from the aortobifemoral graft until we got vigorous antegrade arterial flow and no further thrombus. We clamped the graft off proximally. We then closed the transverse graftotomy with a 5-0 CV 5 [place] suture and both clamps were opened. Hemostasis was satisfactory at the graftotomy and flow was present. She tolerated procedure satisfactory. We irrigated out the wound copiously with Kefzol-impregnated saline then closed the subcutaneous tissue in 2 layers with 2-0 Polysorb running. The skin was closed with roselyn. Sterile dressing was applied. She tolerated it well. Was sent to the recovery room in satisfactory condition. Estimated blood loss was about 50 mL. cc: Austen Srivastava MD
[2019-04-17] MEDS ORDERED: ASPIRIN PO SCH (21:00)
[2019-04-17] MEDS ORDERED: LIPITOR PO SCH (21:00)
[2019-04-17] MEDS: PERIDEX MT SCH (22:05)
[2019-04-17] MEDS: VANCOMYCIN 1 GM/NS 1 GM/250 ML IVPB IV SCH (22:05)
[2019-04-17] MEDS: LOPRESSOR PO SCH (22:06)
[2019-04-18] MEDS: NORCO-10 PO PRN ×3 (07:37→16:35)
[2019-04-18] MEDS: VANCOMYCIN 1 GM/NS 1 GM/250 ML IVPB IV SCH (07:37)
[2019-04-18] MEDS: NS 1,000 ML IV SCH (07:38)
[2019-04-18] MEDS ORDERED: PRILOSEC PO SCH (09:00)
[2019-04-18] MEDS ORDERED: AMARYL PO SCH (09:00)
[2019-04-18] MEDS: LOPRESSOR PO SCH (09:21)
[2019-04-18] MEDS: PERIDEX MT SCH (09:21)
[2019-04-18] MEDS ORDERED: SALINE LOCK IV FLUID XX ONE (13:01)
--- NOTE | 2019-04-18 14:47 | GENERAL SURGERY PROGRESS NOTE ---
DATE: 04/18/2019 OBJECTIVE: She is afebrile, heart rate 86, blood pressure 115/63. She has a little bit of oozing from her wound. Her leg feels warm down to the ankle. The foot is cool. She has not been up much. ASSESSMENT AND PLAN: We will therefore remove her Rueda, make her IV saline lock, and have her walk around to see how she does before deciding on discharge. cc: Austen Srivastava MD
[2019-04-18 15:34] VITALS: BP 136/58
[2019-04-18] MEDS ORDERED: ELIQUIS PO SCH (21:00)
--- NOTE | 2019-04-18 22:21 | GENERAL SURGERY PROGRESS NOTE ---
DATE: 04/18/2019 Ms. Evans has been up walking. I do hear Doppler flow of her graft in her popliteal. I will put her on Eliquis. She wants to go home. She will return to see me in 9 days for staple removal. Wound care was discussed. She is instructed not to smoke. cc: Austen Srivastava MD
== END 2019-04-18 16:44 | disposition home or self-care (01) ==
LOC: OR 09:03 → INTOOBSV 15:43 → 4N 15:43 → OR 04-18 16:44
PROVIDERS: ATTEND Surgery
CPT/HCPCS: 80048; 81001; 82948; 85027; 88304; 93005; 93010; 94640; 94760; 94799; A9270; J0330; J0690; J1170; J1644; J2440; J3010; J3370; J7030; J7120; Q9967; XXXXX

== ENCOUNTER 2019-08-27 03:22 | Inpatient (IN) ==
--- NOTE | 2019-08-24 14:17 | EKG Report ---
Test Performed on : 08/24/2019 1:53:56 PM Test Reason : PAT Blood Pressure : / mmHG Vent. Rate : 066 BPM Atrial Rate : 066 BPM P-R Int : 166 ms QRS Dur : 088 ms QT Int : 456 ms P-R-T Axes : 038 038 089 degrees QTc Int : 478 ms Normal sinus rhythm. Nonspecific T wave abnormality Abnormal ECG When compared with ECG of 15-APR-2019 14:53, No significant change was found Confirmed by Jitendra MELENDEZ, Santos Chow ([id number]) on 08/25/2019 7:41:47 AM
[2019-08-24 14:38] LABS: HEMOGLOBIN 13.9 g/dL (12.0-16.0); MCH 29.6 PG (27-31); MCHC 32.3 g/dL (33-37); MCV 91.7 FL (81-99); RBC 4.69 XMIL (4.2-5.4); WBC 6.96 X1000 (4.8-10.8)
[2019-08-24 14:49] LABS: AGAP 11; BUN 10 mg/dL (8-22); CALCIUM 9.2 mg/dL (8.8-10.2); CHLORIDE 103 mmol/L (98-107); COSMO 289; CREATININE 0.6 mg/dL (0.5-0.9); ESTIMATED GFR > 60; GLUCOSE 285 mg/dL (70-104); POTASSIUM 4.4 mmol/L (3.5-5.1); SODIUM 140 mmol/L (136-145); TCO2 26 mmol/L (25-35)
[2019-08-27] MEDS ORDERED: REGLAN ONE (09:27)
[2019-08-27] MEDS ORDERED: LR 1,000 ML ONE (09:27)
[2019-08-27] MEDS ORDERED: PEPCID ONE (09:27)
[2019-08-27] MEDS ORDERED: VERSED ONE (10:13)
[2019-08-27] MEDS ORDERED: FENTANYL ONE (10:13)
[2019-08-27] MEDS ORDERED: DIPRIVAN 1% ONE (10:13)
[2019-08-27] MEDS ORDERED: ROBINUL ONE ×2 (10:17→12:59)
[2019-08-27] MEDS ORDERED: XYLOCAINE-MPF 2% ONE (10:17)
[2019-08-27] MEDS ORDERED: QUELICIN (DOSE) ONE (10:17)
[2019-08-27] MEDS ORDERED: VANCOMYCIN 1 GM/NS 1 GM/250 ML IVPB IV ONE (11:00)
[2019-08-27] MEDS ORDERED: NS 1,000 ML ONE ×3 (11:18→13:47)
[2019-08-27] MEDS ORDERED: HEPARIN ONE ×2 (11:22)
[2019-08-27] MEDS ORDERED: ZEMURON ONE ×2 (11:50→12:34)
[2019-08-27] MEDS ORDERED: HEPARIN (DOSE) ONE (12:03)
[2019-08-27] MEDS ORDERED: DECADRON ONE (12:09)
[2019-08-27] MEDS ORDERED: EPHEDRINE ONE (12:16)
[2019-08-27] MEDS ORDERED: ALBUMIN 25% ONE (12:30)
[2019-08-27 12:46] LABS: URINE SOURCE CATH
[2019-08-27 12:49] LABS: BILIRUBIN URINE NEGATIVE (NEGATIVE); BLOOD URINE NEGATIVE (NEGATIVE); COLOR STRAW; GLUCOSE URINE TRACE mg/dL (NEGATIVE); KETONE URINE NEGATIVE (NEGATIVE); LEUKOCYTES URINE NEGATIVE (NEGATIVE); NITRITE URINE NEGATIVE (NEGATIVE); PROTEIN URINE NEGATIVE (NEGATIVE); SP GRAVITY URINE 1.005; TURBIDITY URINE CLEAR (CLEAR); UR EPITHELIAL CELLS <10 /HPF (<10); URINE BACTERIA NEGATIVE /HPF; URINE RBC <10 /HPF (<10); URINE WBC <10 /HPF (<10); UROBILINOGEN URINE NORMAL (NORMAL)
[2019-08-27] MEDS ORDERED: NEOSTIGMINE ONE (12:59)
[2019-08-27] MEDS ORDERED: ZOFRAN ONE (13:00)
[2019-08-27] MEDS ORDERED: KEFZOL ONE (13:06)
[2019-08-27] MEDS ORDERED: SODIUM CHLORIDE 0.9% 10 ML ONE (13:11)
[2019-08-27] MEDS ORDERED: DILAUDID ONE (13:22)
[2019-08-27] MEDS ORDERED: DILAUDID IV PRN (14:52)
[2019-08-27] MEDS ORDERED: ZOFRAN IV PRN (14:52)
--- NOTE | 2019-08-27 15:13 | OPERATIVE NOTE ---
PROCEDURE DATE: 08/27/2019 PROCEDURES PERFORMED: 1. Open thrombectomy, left limb aortobifemoral graft and left femoral-popliteal graft. 2. Open balloon angioplasty of the popliteal artery anastomosis using a 6 x 6 balloon. 3. A left iliac limb stent placement using a 7 mm x 59 mm Natasha stent. SURGEON: Austen Srivastava M.D. REVIEWER SALES: [employer]. PREOPERATIVE DIAGNOSIS: Thrombosis, left limb aortobifemoral graft. POSTOPERATIVE DIAGNOSIS: Thrombosis, left limb aortobifemoral graft, with the left iliac limb stenosis and a popliteal artery anastomotic stenosis. DESCRIPTION OF PROCEDURE: Satisfactory general endotracheal anesthesia was achieved. The abdomen, groins, and left leg were prepped and draped in a sterile fashion. Preop vancomycin was given. We made a vertical incision in the left groin in the area of the old scar. We dissected down to the area of the graft. We isolated the femoropopliteal graft, and then the distal limb of the aortobifemoral graft. Then, 7000 units of heparin were given. After it had circulated for 5 minutes, we then made a transverse graftotomy, and there was some milky-appearing fluid inside the graft. We evacuated it and cultured it. We then passed a 4 Wilder down, and the 4 would not go through the anastomosis, but a 5 would. We extracted the old debris and milky fluid that was in the distal graft. I then obtained a 6-[place] sheath. We placed it in the graftotomy. We closed the graft on each side of the sheath, such that that was the only thing exiting the graftotomy. We then passed a Glidewire down to the anastomosis. We did traverse the anastomosis with a Glidewire. We shot an arteriogram, and this showed a stenosis at the popliteal anastomosis. I then advanced a 6 x 6 balloon across this, and dilated it to nominal pressures, that is 12 atmospheres for 1 minute. Completion arteriogram then showed significant improvement to the outflow tract at the popliteal artery. I then removed the sheath, and turned it around and advanced it up into the graft, but before that, I might mention that we did extract clot from the left limb of the aortobifemoral graft. I did use a couple of 5 Wilder's, and then we ruptured the balloon, so I went to a graft thrombectomy catheter, and was able to traverse the proximal area of concern, and get antegrade flow. After we had accomplished that, we switched our 6-[place] sheath cephalad, and shot an arteriogram, and this showed flow, but there was a stenosis at the takeoff of the left limb of the graft. I used the 6 x 6 balloon to balloon it, and then I chose a 7 mm x 59 mm Natasha stent, and deployed it at the takeoff of the left limb of the graft. Completion arteriogram showed complete resolution of the stenosis, with good antegrade flow in the graft. We then removed the sheath, and placed another 5-0 Prolene stitch, and this completely closed the graftotomy, and a pulse was noted within the grafts from the left limb of the aortobifemoral graft, down to the femoropopliteal graft as well. We irrigated the wound with Kefzol-impregnated saline, and then closed the subcutaneous tissue with interrupted 2-0 Polysorb, followed by a running 2-0 Polysorb, followed by interrupted 3-0 Polysorb in the subcutaneous tissue. The skin was then closed with roselyn. A sterile dressing was applied. She tolerated it well. 83 mL of contrast were used. She was sent to the recovery room in stable condition. cc: Austen Srivastava MD
[2019-08-27] MEDS: NS 1,000 ML IV SCH ×2 (18:35→22:09)
[2019-08-27] MEDS: NORCO-10 PO PRN (18:50)
[2019-08-27] MEDS: PERIDEX MT SCH (22:06)
[2019-08-27] MEDS: LOPRESSOR PO SCH (22:06)
[2019-08-27] MEDS: ASPIRIN PO SCH (22:07)
[2019-08-27] MEDS: ELIQUIS PO SCH (22:07)
[2019-08-27] MEDS: LIPITOR PO SCH (22:07)
[2019-08-27] MEDS: VANCOMYCIN 1 GM/NS 1 GM/250 ML IVPB IV SCH (23:17)
[2019-08-28] MEDS: NS 1,000 ML IV SCH ×2 (05:58→14:00)
[2019-08-28 06:32] LABS: BASO# 0.01 X1000 (0.0-0.2); BASO% 0.1 % (0.0-0.8); EOS# 0.01 X1000 (0.0-0.7); EOS% 0.1 % (0.0-10.0); HEMOGLOBIN 9.7 g/dL (12.0-16.0); LYMPH% 14.1 % (20.5-51.1); MCH 29.7 PG (27-31); MCHC 31.3 g/dL (33-37); MCV 94.8 FL (81-99); MONO# 0.36 X1000 (0.11-0.59); MONO% 4.2 % (1.7-9.3); MPV 10.6 FL (7.4-10.4); NEUT# 6.95 X1000 (1.4-6.5); NEUT% 81.5 % (42.2-75.2); PLT 156 X1000 (130-400); RBC 3.27 XMIL (4.2-5.4); RDW 13.8 % (11.5-14.5); WBC 8.53 X1000 (4.8-10.8)
[2019-08-28 06:57] LABS: AGAP 10; BUN 7 mg/dL (8-22); CALCIUM 8.6 mg/dL (8.8-10.2); CHLORIDE 103 mmol/L (98-107); COSMO 281; CREATININE 0.8 mg/dL (0.5-0.9); ESTIMATED GFR > 60; GLUCOSE 201 mg/dL (70-104); SODIUM 139 mmol/L (136-145); TCO2 26 mmol/L (25-35)
[2019-08-28] MEDS: NORCO-10 PO PRN ×3 (08:37→20:46)
[2019-08-28] MEDS ORDERED: PLAVIX PO SCH (09:00)
[2019-08-28] MEDS: LOPRESSOR PO SCH ×2 (10:03→20:47)
[2019-08-28] MEDS: PRILOSEC PO SCH (10:04)
[2019-08-28] MEDS: AMARYL PO SCH (10:04)
[2019-08-28] MEDS: ELIQUIS PO SCH ×2 (10:04→20:47)
[2019-08-28] MEDS: PERIDEX MT SCH ×2 (10:04→20:47)
[2019-08-28] MEDS: VANCOMYCIN 1 GM/NS 1 GM/250 ML IVPB IV SCH (10:53)
--- NOTE | 2019-08-28 13:52 | GENERAL SURGERY PROGRESS NOTE ---
DATE: 08/28/2019 Ms. Evans says her leg feels better. She is afebrile with stable hemodynamics. Bandage is dry. Her hemoglobin is 9.7, hematocrit 31. She does have Doppler flow noted in the popliteal area. She has meager Doppler flow noted at the dorsalis pedis region. PLAN: Is to keep her here on IV antibiotics until tomorrow. She can go home tomorrow. She was instructed not to smoke. She will go home on Eliquis 5 mg twice a day. She is to return to see me in the office Saturday. cc: Austen Srivastava MD
[2019-08-28] MEDS: LIPITOR PO SCH (20:47)
[2019-08-28] MEDS: ASPIRIN PO SCH (20:47)
[2019-08-29] MEDS: VANCOMYCIN 1 GM/NS 1 GM/250 ML IVPB IV SCH (00:16)
[2019-08-29] MEDS: NORCO-10 PO PRN ×2 (04:54→09:05)
[2019-08-29 07:31] VITALS: BP 110/47
[2019-08-29] MEDS: NS 1,000 ML IV SCH (08:17)
[2019-08-29] MEDS: AMARYL PO SCH (09:05)
[2019-08-29] MEDS: PRILOSEC PO SCH (09:05)
[2019-08-29] MEDS: LOPRESSOR PO SCH (09:06)
[2019-08-29] MEDS: ELIQUIS PO SCH (09:06)
--- NOTE | 2019-08-29 09:48 | DISCHARGE SUMMARY ---
ADMISSION DATE: 08/27/2019 DISCHARGE DATE: 08/29/2019 ADMITTING DIAGNOSIS: Thrombosis left limb of aortobifemoral arterial bypass graft. DISCHARGE DIAGNOSIS: Thrombosis left limb of aortobifemoral arterial bypass graft. PRINCIPAL PROCEDURE: Open thrombectomy left limb aortobifemoral graft and thrombectomy of a left femoral popliteal graft. She also had open balloon angioplasty of the left popliteal artery anastomosis and left iliac limb stent placement. This was done per Dr. Srivastava 08/27/2019. After surgery, she had good flow to her left foot. She was hospitalized on our [address] [place] [address] anna. Her wound was intact and seemed to be healing well. She received IV antibiotics for the 1st 24 hours after surgery. She will go to go home on Eliquis 5 mg twice daily. She is to return to see Dr. Srivastava in his office not this Saturday but next Saturday. She underwent smoking counseling. At discharge, her heart rate was 57, blood pressure 110/47, O2 saturation 97%. She was afebrile and we changed her dressing prior to her discharge. She did receive IV vancomycin until discharge. We will add Eliquis to her discharge medications. cc: MD Austen Malhotra MD
== END 2019-08-29 10:51 | disposition home or self-care (01) | DRG 254 ==
LOC: INTOOBSV 03:22 → SURHOLD 03:22 → OBSVTOIN 03:22 → 4N 14:09
PROVIDERS: ADMIT Surgery; ATTEND Surgery